=== PATIENT | male | born 1985 | race Caucasian/White ===

== ENCOUNTER 2017-09-08 21:29 | Emergency (ER) | payer OTHER ==
[2017-09-08 21:29] VITALS: BMI 38.0
[2017-09-08] MEDS ORDERED: Belladonna-Phenobarbital PO STA (22:15)
[2017-09-08] MEDS ORDERED: Alum-Mag Hydrox-Simethicone Susp (30 mL) PO STA (22:15)
--- NOTE | 2017-09-08 22:16 | C.PDOC ---
History Of Present Illness 31 y/o male with no significant PMHx, presents to the ED with complaint of substernal chest pain, described as sharp and continuous since 1:00pm. Denies any recent cough. Pain is slightly worsened with deep inspiration, denies positional component to the pain. Denies exacerbation of pain with eating or drinking. Patient denies history of GERD or peptic ulcer disease. Otherwise no associated fever, chills, SOB, palpitations, abdominal pain, nausea, vomiting, or diaphoresis. Time Seen by Provider: 09/08/17 22:10 Chief Complaint (Nursing): Abdominal Pain History Per: Patient History/Exam Limitations: no limitations Onset/Duration Of Symptoms: Hrs Current Symptoms Are (Timing): Still Present Quality Of Discomfort: Sharp Exacerbating Factors: Deep Breaths Past Medical History Reviewed: Historical Data, Nursing Documentation, Vital Signs Vital Signs: Last Vital Signs Temp 98.2 F 09/09/17 00:02 Pulse 93 H 09/09/17 00:02 Resp 18 09/09/17 00:02 BP 128/87 09/09/17 00:02 Pulse Ox 98 09/09/17 00:02 - Medical History PMH: No Chronic Diseases Surgical History: No Surg Hx Family History: States: No Known Family Hx - Social History Hx Tobacco Use: Yes Hx Alcohol Use: Yes Hx Substance Use: No - Immunization History Hx Tetanus Toxoid Vaccination: No Hx Influenza Vaccination: No Hx Pneumococcal Vaccination: No Review Of Systems Except As Marked, All Systems Reviewed And Found Negative. Constitutional: Negative for: Fever, Chills Cardiovascular: Positive for: Chest Pain. Negative for: Palpitations Respiratory: Negative for: Cough, Shortness of Breath Gastrointestinal: Negative for: Nausea, Vomiting, Abdominal Pain Neurological: Negative for: Dizziness Physical Exam - Physical Exam Appears: Non-toxic, No Acute Distress, Other (Moderately obese) Skin: Normal Color, Warm, Dry Head: Atraumatic, Normacephalic Eye(s): bilateral: Normal Inspection, PERRL, EOMI Nose: Normal Oral Mucosa: Moist Neck: Normal ROM, Supple Chest: Symmetrical, No Tenderness (to chest wall on palpation) Cardiovascular: Rhythm Regular, No Murmur, Other (S1, S2 are wnl) Respiratory: Normal Breath Sounds (Lungs CTA bilaterally), No Rales, No Rhonchi , No Wheezing Gastrointestinal/Abdominal: Soft, Tenderness (over the epigastrium on palpation , also palpation of LUQ reproduces chest pain), No Mass, No Guarding, No Rebound Back: Normal Inspection Extremity: Normal ROM, No Calf Tenderness, No Deformity, No Swelling, No Other ( clubbing, edema, or cyanosis) Pulses: Left Dorsalis Pedis: Normal, Right Dorsalis Pedis: Normal Neurological/Psych: Oriented x3, Normal Speech, Normal Cranial Nerves, Other ( No focal deficits) ED Course And Treatment - Laboratory Results Result Diagrams: 09/08/17 22:20 09/08/17 22:20 ECG: Interpreted By Me, Viewed By Me ECG Rhythm: Sinus Rhythm ECG Interpretation: Normal Interpretation Of ECG: No acute ST/T wave changes, no ectopy. Rate From EC O2 Sat by Pulse Oximetry: 100 (RA) Pulse Ox Interpretation: Normal Medical Decision Making Medical Decision Making: Initial Impression: Atypical chest pain, likely GERD Plan: --EKG --Routine labs with cardiac enzymes --Chest X-Ray --GI cocktail --Reeval after meds given Progress/Updates: EKG is normal. Disposition - Disposition Referrals: [facility] [Outside] Disposition: HOME/ ROUTINE Disposition Time: 01:25 Condition: GOOD Prescriptions: Pantoprazole Sodium [Protonix] 40 mg PO DAILY #14 ect Instructions: Chest Pain That Is Not Caused by the Heart (DC) Forms: [employer] (Welsh) Print Language: MONGOLIAN - Clinical Impression Clinical Impression: Chest pain, Abdominal pain - Scribe Statement The provider has reviewed the documentation as recorded by the Scribe (Matilde Washington) Provider Attestation: All medical record entries made by the Scribe were at my direction and personally dictated by me. I have reviewed the chart and agree that the record accurately reflects my personal performance of the history, physical exam, medical decision making, and the department course for this patient. I have also personally directed, reviewed, and agree with the discharge instructions and disposition.
[2017-09-08] MEDS ORDERED: Alum-Mag Hydrox-Simethicone Susp (30 mL) ONE (22:22)
[2017-09-08] MEDS ORDERED: Belladonna-Phenobarbital ONE (22:22)
[2017-09-08 22:23] LABS: BASO % 0.3 % (0.0-2.0); EOS # 0.2 K/uL (0.0-0.7); EOS % 1.6 % (0.0-4.0); HEMOGLOBIN 14.9 g/dL (12.0-18.0); LYMPH # 2.5 K/uL (1.0-4.3); LYMPH % 19.8 % (20.0-40.0); MEAN CELL VOLUME 86.1 fL (80.0-94.0); MEAN CORPUSCULAR HEMOGLOBIN 30.4 pg (27.0-31.0); MEAN CORPUSCULAR HGB CONC 35.3 g/dL (33.0-37.0); MEAN PLATELET VOLUME 8.2 fL (7.2-11.7); MONO # 0.9 K/uL (0.0-0.8); MONO % 7.5 % (0.0-10.0); NEUT # 8.9 K/uL (1.8-7.0); NEUT % 70.8 % (50.0-75.0); NRBC % 0.1 % (0.0-2.0); RBC 4.89 Mil/uL (4.40-5.90); RED CELL DISTRIBUTION WIDTH 13.2 % (11.5-14.5); WHITE BLOOD COUNT 12.6 K/uL (4.8-10.8)
[2017-09-08 22:34] LABS: ALB/GLOB RATIO 1.2 (1.0-2.1); ALBUMIN 4.4 g/dL (3.5-5.0); ALT/SGPT 76 U/L (21-72); AST/SGOT 45 U/L (17-59); BLOOD UREA NITROGEN 16 mg/dL (9-20); CALCIUM 8.9 mg/dl (8.6-10.4); GFR AFRICAN-AMERICAN > 60; GFR NON-AFRICAN AMERICAN > 60; LIPASE 89 U/L (23-300)
[2017-09-08 22:50] LABS: TROPONIN I < 0.1200 ng/mL (0.00-0.120)
[2017-09-09 00:03] VITALS: BP 128/87; PULSE 93; RESP 18; TEMP 98.2
[2017-09-09 01:26] VITALS: O2SAT 100
--- NOTE | 2017-09-09 11:42 | RAD ---
PROCEDURE: CHEST RADIOGRAPH, 1 VIEW HISTORY: Chest pain COMPARISON: None available. FINDINGS: LUNGS: The lungs are. PLEURA: No pneumothorax or pleural fluid seen. CARDIOVASCULAR: Normal. OSSEOUS STRUCTURES: No significant abnormalities. VISUALIZED UPPER ABDOMEN: Normal. OTHER FINDINGS: None. IMPRESSION: No active clear pulmonary disease.
--- NOTE | 2017-09-13 23:43 | CARD ---
APPROVED REPORT EKG Measurement Heart [id number] <Conclusion> Normal sinus rhythm Nonspecific T wave abnormality Abnormal ECG
== END 2017-09-09 00:03 | disposition home or self-care (01) ==
LOC: C.ER 21:29
DX: R07.9 Chest pain, unspecified (principal); R10.9 Unspecified abdominal pain